=== PATIENT | female | born 1995 | race Caucasian/White ===

== ENCOUNTER → 2018-09-12 | Outpatient (CLI) | payer BC ==
[2018-09-12 07:52] LABS: PLATELET COUNT, AUTOMATED 308 K/uL (150-450)
== END ==
LOC: LAB 07:32
PROVIDERS: ATTEND Nurse Practitioner Family
DX: R53.83 Other fatigue (principal); M54.5 Low back pain; M79.10 Myalgia, unspecified site
CPT/HCPCS: 36415; 82040; 82247; 82310; 82374; 82435; 82565; 82947; 84075; 84132; 84155; 84295; 84443; 84450; 84460; 84520; 85025; 85651; 86140; 86430